=== PATIENT | male | born 1955 | race African-American/Black ===

== ENCOUNTER 2023-06-01 06:12 | Day surgery (SDC) | payer BC, OTHER ==
[2023-05-17 10:03] LABS: Absolute Eosinophils 0.5 K/uL (0-0.5); Absolute Lymphocytes (CBC) 1.1 K/uL (0.7-4.9); Absolute Monocytes 0.4 K/uL (0.1-1.3); Basophils % 0.9 % (0-1.3); Eosinophils % 9.9 % (0-4.4); Hemoglobin 11.9 g/dL (13.6-17.9); Lymphocytes % 22.7 % (15.3-44.8); MCH 33.3 pg (27.0-35.0); MPV 9.2 fL (7.6-11.3); Neutrophils % 59.5 % (41.7-73.7); Nucleated Red Blood Cells % 0.3 % (0-0); Platelets 167 thou/uL (152-406); RBC Red Blood Cell Count 3.57 M/uL (4.33-5.43); Red Cell Distribution Width 11.9 % (12.1-15.2)
[2023-05-17 10:06] LABS: PT Prothrombin Time 11.4 SECONDS (9.5-12.5); Protime INR 1.04
--- NOTE | 2023-05-17 10:08 | RAD REPORT ---
EXAM DESCRIPTION: RAD - Chest Pa And Lat (2 Views) - 05/17/2023 10:02 am CLINICAL HISTORY: Pre op pending Spaceoar gel and seeds COMPARISON: Bone Imaging Whole Body dated 11/06/2022; Abdomen Pelvis W Contrast dated 11/06/2022 FINDINGS: Lines: None. Lungs: No evidence of edema or pneumonia. Pleural: No significant pleural effusions or pneumothorax. Cardiac: The heart size is within normal limits. Mediastinum: Within normal limits. Bones: No acute fractures. Other: None IMPRESSION: No acute cardiopulmonary disease.
[2023-05-17 10:18] LABS: Anion Gap 7.5 mEq/L (5.0-15.0); Potassium 5.5 mEq/L (3.5-5.1)
[2023-06-01] MEDS: Ringers Lactate 1,000 ML IV ONE (06:20)
[2023-06-01 07:00] LABS: Anion Gap 10.4 mEq/L (5.0-15.0)
[2023-06-01 07:01] LABS: Potassium 4.4 mEq/L (3.5-5.1)
[2023-06-01 07:03] VITALS: O2SAT 100
[2023-06-01] MEDS ORDERED: LIDOCAINE 1% MPF 5 ML VIAL ONE (07:19)
[2023-06-01] MEDS ORDERED: propofoL 200 MG/20 ML VIAL IV ONE (07:20)
[2023-06-01] MEDS ORDERED: FENTANYL CITR 100 MCG/2 ML ONE (07:20)
[2023-06-01] MEDS ORDERED: MIDAZOLAM HCL 2 MG/2 ML INJ ONE (07:21)
[2023-06-01] MEDS: CEFAZOLIN SODIUM 2 GM/VIAL ONE (07:30)
[2023-06-01] MEDS ORDERED: ONDANSETRON 4 MG/2 ML VIAL ONE (07:42)
[2023-06-01] MEDS ORDERED: CODEINE 30MG/APAP 300MG TAB PO PRN (08:12)
--- NOTE | 2023-06-01 08:44 | OP ---
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 Postoperative Diagnosis: Grade group 3 adenocarcinoma of the prostate. Principal Procedures: 1.Transrectal ultrasound-guided placement of fiducial markers transperineally, 2 markers placed. 2.Transrectal ultrasound-guided SpaceOAR gel insertion transperineally. Indication For Procedure: Mr. Terrell is a 67-year-old gentleman, who was on active surveillance wi th favorable intermediate risk prostate cancer. His PSA progressed over time eventually to over 16, and he underwent restaging prostate biopsy revealing progression of his disease to grade group 3, Gle ason 4+3 adenocarcinoma of the prostate. As a result, he was counseled on the recommendation for pro ceeding with intervention and treatment of his prostate cancer, and he elected to proceed with radiat ion therapy. SpaceOAR gel and fiducial were requested in advance of the radiation. Procedure In Detail: The patient was consented in the preoperative holding area before being transfe rred to the operative suite, where general anesthesia was induced. He was given Ancef 2 g IV antimic robial prophylaxis, and pneumo boots were provided for DVT prophylaxis. He was placed in the high li thotomy position, padded and secured to the table appropriately. His genitalia were elevated out of the perineum using an Ioban drape. The perineal region was prepped with Betadine and the transrectal ultrasound probe had been placed into his rectum free hand prior to the prepping of his perineum wit h the Betadine. The case was then begun by targeting the patient's left leydi-prostate and navigating a fiducial marker via its needle through the sagittal plane visualization into the perineum and into the left leydi-prostate anteriorly where it was placed in the mid gland. I then angled the ultrasoun d probe toward the right leydi-prostate and similarly placed a second fiducial marker transperineally under ultrasound guidance into the right leydi-prostate in the anterior mid gland region. Once fiduci al markers had been successfully placed, I then navigated the ultrasound probe back to the midline an d again in sagittal section, I advanced the SpaceOAR needle via the perineum and under direct visuali zation ultrasound guidance, navigated it through the urogenital diaphragm beneath the urethra and ove r the rectal hump into the white fat plane clearly identifiable on ultrasound. I was able to navigat e it into the mid base region of the prostate, at which point, I aspirated and retrieved no blood or succus. I then switched to axial section and injected some saline, which did nicely hydrodissect wit h the needle appropriately in the midline. As a result, I switched the saline syringe for the SpaceO AR gel component and connected it to the needle. I then ensured the needle was situated in the mid z one of the prostate and then injected the SpaceOAR gel component nicely filling and distending the De nonvilliers space and creating a beautiful buffer from apex to base between the peripheral zone of th e prostate and the rectum. Afterwards, the needle was removed, and I applied a bit of pressure to th e perineum for the small amount of oozing from each of the needle sites. We then cleansed away the B etadine from his perineum and took the patient out of the lithotomy position after I removed the Ioba n drape. He was then awakened from general anesthesia, transferred to a stretcher, and then transfer red to the recovery room in good condition. Complications: None. Discharge Disposition: He will begin simulation for radiation therapy with Dr. Delgado starting lat er this week on . Subsequent followup should be established with me approximately 3 months a fter he completes radiation, or in approximately 6 months' time. Should he have significant worsenin g of his urinary symptoms or complications from the radiation, he may certainly be seen in followup s ooner. GEORGIANA/DAIN Voice ID: [id number] Report ID: [id number]
--- NOTE | 2023-06-01 09:09 | RAD REPORT ---
EXAM DESCRIPTION: US - Renal Ultrasound-Complete - 06/01/2023 8:47 am CLINICAL HISTORY: LEEANN COMPARISON: Abdomen Pelvis W Contrast dated 11/06/2022 FINDINGS: Both kidneys are normal in size, shape and echotexture. The right kidney measures 10.2 cm. No hydronephrosis. Simple appearing 15 mm right upper pole renal c yst. The left kidney measures 10.8 cm. Minimally complex left renal cyst with thin septation. Small renal cysts noted. No hydronephrosis. The largest cyst measures 4 cm at the lower pole. The urinary bladder is incompletely distended without gross abnormality seen. Prostatomegaly. IMPRESSION: No hydronephrosis. Bilateral simple and minimally complicated renal cyst. Prostatomegaly .
[2023-06-01 10:31] VITALS: BP 124/72; TEMP 97
== END 2023-06-01 09:52 | disposition home or self-care (01) ==
LOC: OR 06:12
PROVIDERS: ATTEND Urology
PROC: 0VH43YZ Insertion of Other Device into Prostate and Seminal Vesicles, Percutaneous Approach (ICD-10-PCS; principal; 2023-06-01 07:30)
DX: C61 Malignant neoplasm of prostate (principal); I10 Essential (primary) hypertension; E78.5 Hyperlipidemia, unspecified; I25.10 Atherosclerotic heart disease of native coronary artery without angina pectoris; D64.9 Anemia, unspecified; E87.5 Hyperkalemia
CPT/HCPCS: 87088; 85025; 87086; 80048 ×2; 36415 ×2; 85610; 71046; 76770; 55874; J2704; J2001; J2250; J3010; J2405; J7120